=== PATIENT | female | born 2000 | race Caucasian/White ===

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

== ENCOUNTER 2018-02-13 15:44 | Emergency (ER) | payer OTHER ==
--- NOTE | 2018-02-13 17:00 | ED ---
Back Pain HPI - General Chief Complaint: Back Pain/Injury Stated Complaint: Back pain Time Seen by Provider: 02/13/18 16:42 Source: patient, RN/MD, RN notes reviewed, old records reviewed Limitations: no limitations - History of Present Illness Initial Comments: [id number] female presents emergency Department chief complaint of lower back pain. She also reports she is concern for urinary tract infection. Denies any vaginal discharge. She states she has no chance of . Patient states that she's had urinary tract infections the past she's had pain somewhat to this. However she does state the pain is worse with movement. No falls or trauma. States the pain started when she woke up this morning. Patient denies any recent fever chills nausea or vomiting. She denies any abdominal pain. - Related Data Home Medications Medication Instructions Recorded Confirmed Aspirin 325 mg PO DAILY PRN 02/13/18 02/13/18 Cranberry Fruit Concentrate [Azo 250 mg PO DAILY 02/13/18 02/13/18 Cranberry] Ibuprofen [Motrin] 600 mg PO Q6HR PRN 02/13/18 02/13/18 guaiFENesin SYRUP 100MG/5ML 200 mg PO Q6H PRN 02/13/18 02/13/18 [Robitussin] Previous Rx's Medication Instructions Recorded Cyclobenzaprine [Flexeril] 10 mg PO TID #12 tab 02/13/18 Ibuprofen 600 mg PO TID #30 tablet 02/13/18 Allergies Allergy/AdvReac Type Severity Reaction Status Date / Time Penicillins Allergy Rash/Hives Verified 02/13/18 16:54 Review of Systems ROS Statement: Those systems with pertinent positive or pertinent negative responses have been documented in the HPI. ROS Other: All systems not noted in ROS Statement are negative. Past Medical History Past Medical History: No Reported History Additional Past Medical History / Comment(s): urinary reflux/UTI History of Any Multi-Drug Resistant Organisms: None Reported Past Surgical History: Section Past Anesthesia/Blood Transfusion Reactions: No Reported Reaction Past Psychological History: Anxiety, Bipolar, Depression, PTSD Smoking Status: Former smoker Past Alcohol Use History: None Reported Past Drug Use History: None Reported - Past Family History Mother Family Medical History: No Reported History Father Family Medical History: No Reported History General Exam - General Exam Comments Initial Comments: This is a 17-year-old female. Alert and oriented. No acute distress. Limitations: no limitations Head exam: Present: atraumatic, normocephalic, normal inspection Eye exam: Present: normal appearance, PERRL, EOMI. Absent: scleral icterus, conjunctival injection, periorbital swelling ENT exam: Present: normal exam, mucous membranes moist Neck exam: Present: normal inspection. Absent: tenderness, meningismus, lymphadenopathy Respiratory exam: Present: normal lung sounds bilaterally. Absent: respiratory distress, wheezes, rales, rhonchi, stridor Cardiovascular Exam: Present: regular rate, normal rhythm, normal heart sounds. Absent: systolic murmur, diastolic murmur, rubs, gallop, clicks GI/Abdominal exam: Present: soft, normal bowel sounds. Absent: distended, tenderness, guarding, rebound, rigid Back exam: Present: normal inspection, tenderness (over lumbar spine), paraspinal tenderness (Evidence of paraspinal muscle tenderness over the lumbar spine) Neurological exam: Present: alert, oriented X3, CN II-XII intact Psychiatric exam: Present: normal affect, normal mood Skin exam: Present: warm, dry, intact, normal color. Absent: rash Course Vital Signs 02/13/18 16:19 Temperature 99.0 F Pulse Rate 100 Respiratory 18 Rate Blood Pressure 110/61 O2 Sat by Pulse 98 Oximetry Medical Decision Making - Medical Decision Making 48-year-old female with acute lower back pain today. Concern for urinary tract infection. At this time urinalysis negative for infection. HCG is negative. X -ray lumbar spine completed. No radicular symptoms. Full range of motion and strength and legs. Denies any saddle anesthesias. - Lab Data Lab Results 02/13/18 02/13/18 Range/Units 17:02 17:02 Urine Color Yellow Urine Appearance Clear (Clear) Urine pH 5.5 (5.0-8.0) Ur Specific [place] 1.025 (1.001-1.035) Urine Protein Negative (Negative) Urine Glucose (UA) Negative (Negative) Urine Ketones Trace H (Negative) Urine Blood Negative (Negative) Urine Nitrite Negative (Negative) Urine Bilirubin Negative (Negative) Urine Urobilinogen 3.0 (<2.0) mg/dL Ur Leukocyte Esterase Trace H (Negative) Urine RBC <1 (0-5) /hpf Urine WBC 1 (0-5) /hpf Ur Squamous Epith Cells 2 (0-4) /hpf Urine Mucus Few H (None) /hpf Urine HCG, Qual Not Detected (Not Detectd) - Radiology Data Radiology results: report reviewed Disposition Clinical Impression: Lower back pain Disposition: HOME SELF-CARE Condition: Good Instructions: Acute Low Back Pain (ED) Additional Instructions: Patient advised to follow-up with primary care physician. Return to emergency department if any alarming signs or symptoms occur. Prescriptions: Cyclobenzaprine [Flexeril] 10 mg PO TID #12 tab Ibuprofen 600 mg PO TID #30 tablet Is patient prescribed a controlled substance at d/c from ED?: No When asked, does pt state using other controlled substances?: No If prescribed controlled substance>3 days was MAPS reviewed?: No If opioid is for acute pain is fill amount 7 days or less?: No If Rx opioid, was Start Talking consent form obtained?: No Referrals: Jimena Obrien MD [Primary Care Provider] - 1-2 days Time of Disposition: 18:36
[2018-02-13 17:28] LABS: Appearance,Urine Clear (Clear); Bilirubin,Urine Negative (Negative); Blood,Urine Negative (Negative); Color,Urine Yellow; Glucose,Urine (UA) Negative (Negative); Ketones,Urine Trace (Negative); Leukocyte Esterase,Urine Trace (Negative); Mucus,Urine Few /hpf; Nitrite,Urine Negative (Negative); PH, Urine 5.5 (5.0-8.0); Protein,Urine Negative (Negative); RBC,Urine <1 /hpf (0-5); Specific Gravity,Urine 1.025 (1.001-1.035); Squamous Epithelial Cell,Urine 2 /hpf (0-4); WBC,Urine 1 /hpf (0-5)
--- NOTE | 2018-02-13 18:31 | XR ---
EXAMINATION TYPE: XR lumbar spine 2 or 3V DATE OF EXAM: 02/13/2018 COMPARISON: NONE HISTORY: Back pain TECHNIQUE: 3 views FINDINGS: Lumbar vertebra have normal spacing and alignment. Posterior elements are intact. Sacroilia c joints appear normal. IMPRESSION: Normal lumbar spine.
[2018-02-13 18:59] VITALS: BP 128/69; PULSE 70; RESP 16; TEMP 98.5
== END 2018-02-13 18:59 | disposition home or self-care (01) ==
LOC: EC 15:44
DX: M54.5 Low back pain (principal); Z87.891 Personal history of nicotine dependence; Z79.899 Other long term (current) drug therapy; Z88.0 Allergy status to penicillin
CPT/HCPCS: 72100; 81001; 81025; 99284

== ENCOUNTER 2019-01-21 10:06 | Emergency (ER) | payer OTHER ==
[2019-01-21] MEDS ORDERED: SODIUM CHLORIDE 0.9% 500 ML 500 ML IV ONE (10:26)
[2019-01-21] MEDS ORDERED: METOCLOPRAMIDE 5 MG/ML 2 ML VIAL IVP STA (10:26)
[2019-01-21] MEDS ORDERED: SODIUM CHLORIDE 0.9% 1,000 ML IV ONE (10:26)
[2019-01-21 11:09] LABS: Basophils % (A) 0 %; Eosinophils # (A) 0.2 k/uL (0-0.7); Eosinophils % (A) 3 %; HCT 35.3 % (34.0-46.0); HGB 12.2 gm/dL (11.4-16.0); Lymphocytes # (A) 1.4 k/uL (1.0-4.8); Lymphocytes % (A) 21 %; MCH 30.5 pg (25.0-35.0); MCHC 34.5 g/dL (31.0-37.0); MCV 88.2 fL (80.0-100.0); Monocytes # (A) 0.4 k/uL (0-1.0); Monocytes % (A) 6 %; Neutrophils # (A) 4.6 k/uL (1.3-7.7); Neutrophils % (A) 69 %; Platelet Count 210 k/uL (150-450); RDW 13.1 % (11.5-15.5); WBC 6.6 k/uL (4.0-11.0)
--- NOTE | 2019-01-21 11:09 | ED ---
Nausea/Vomiting/Diarrhea HPI - General Chief complaint: Nausea/Vomiting/Diarrhea Stated complaint: 14wks preg, vomiting Time Seen by Provider: 01/21/19 10:10 Source: patient Mode of arrival: ambulatory Limitations: no limitations - History of Present Illness Initial comments: 18-year-old female presenting today for chief complaint of vomiting and pregnan cy. Pt states she is 14 weeks . LMP 10/18/18. Patient states that the past few weeks she has had vomiting about 4 times a day. She states that is normal for her. Patient denies any hematemesis. Patient states that for the past 12 hours she has had vomiting every 40 minutes. She states is unusual. Patient denies any diarrhea. Patient denies any dysuria urgency frequency. Patient denies any fevers. Patient denies any melena or hematochezia. Patient states she has an upcoming appointment with OBGN on January 26. Patient states she has had a previous US with confirmed intrauterine . Patient denies pelvic pain. - Related Data Previous Rx's Medication Instructions Recorded Ondansetron Odt [Zofran Odt] 4 mg PO Q12HR PRN 2 Days #4 tab 01/21/19 Allergies Allergy/AdvReac Type Severity Reaction Status Date / Time Penicillins Allergy Rash/Hives Verified 01/21/19 10:16 Review of Systems ROS Statement: Those systems with pertinent positive or pertinent negative responses have been documented in the HPI. ROS Other: All systems not noted in ROS Statement are negative. Past Medical History Past Medical History: No Reported History Additional Past Medical History / Comment(s): urinary reflux/UTI History of Any Multi-Drug Resistant Organisms: None Reported Past Surgical History: Section Past Anesthesia/Blood Transfusion Reactions: No Reported Reaction Past Psychological History: Anxiety, Bipolar, Depression, PTSD Smoking Status: Former smoker Past Alcohol Use History: None Reported Past Drug Use History: None Reported - Past Family History Mother Family Medical History: No Reported History Father Family Medical History: No Reported History General Exam - General Exam Comments Initial Comments: General: The patient is awake and alert, in no distress, and does not appear acutely ill. Eye: Pupils are equal, round and reactive to light, extra-ocular movements are intact. No nystagmus. There is normal conjunctiva bilaterally. No signs of icterus. Ears, nose, mouth and throat: There are moist mucous membranes and no oral lesions. Neck: The neck is supple, there is no tenderness or JVD. Cardiovascular: There is a regular rate and rhythm. No murmur, rub or gallop is appreciated. Respiratory: Lungs are clear to auscultation, respirations are non-labored, breath sounds are equal. No wheezes, stridor, rales, or rhonchi. Gastrointestinal: Soft, non-distended, non-tender abdomen without masses or organomegaly noted. There is no rebound or guarding present. No CVA tenderness. Bowel sounds are unremarkable. Musculoskeletal: Normal ROM, no tenderness. Strength 5/5. Sensation intact. Pulses equal bilaterally 2+. Neurological: A&O x 3. CN II-XII intact, There are no obvious motor or sensory deficits. Coordination appears grossly intact. Speech is normal. Skin: Skin is warm and dry and no rashes or lesions are noted. Psychiatric: Cooperative, appropriate mood & affect, normal judgment. Limitations: no limitations Course Vital Signs 01/21/19 01/21/19 01/21/19 10:13 11:23 13:06 Temperature 98.7 F 98.8 F 98.2 F Pulse Rate 98 81 62 Respiratory 18 19 18 Rate Blood Pressure 114/79 111/55 136/65 O2 Sat by Pulse 97 99 96 Oximetry Medical Decision Making - Medical Decision Making 18-year-old female presented for vomiting and . Increase from baseline. Urinalysis was not a clean catch. Patient denies any urinary symptoms. Will culture. Patient is provided Reglan and IV fluids. Patient still continued to have dry heaving. Zofran was administered. Patient states t his helped alleviate symptoms. She states she is hungry and would like to go home. Patient does not have any significant electrolyte derangements. No signs of significant dehydration. I discussed the case with him provider all be reviewed laboratory studies. Patient will be discharged with instruction to follow up with her [facility] as scheduled on January 26. Patient is to return for abdominal pain pelvic cramping or vaginal bleeding. Patient verbalized understanding of return parameters. - Lab Data Result diagrams: 01/21/19 11:00 01/21/19 11:00 Lab Results 01/21/19 01/21/19 01/21/19 Range/Units 11:00 11:00 11:00 WBC 6.6 (4.0-11.0) k/uL RBC 4.00 (3.80-5.40) m/uL Hgb 12.2 (11.4-16.0) gm/dL Hct 35.3 (34.0-46.0) % MCV 88.2 (80.0-100.0) fL MCH 30.5 (25.0-35.0) pg MCHC 34.5 (31.0-37.0) g/dL RDW 13.1 (11.5-15.5) % Plt Count 210 (150-450) k/uL Neutrophils % 69 % Lymphocytes % 21 % Monocytes % 6 % Eosinophils % 3 % Basophils % 0 % Neutrophils # 4.6 (1.3-7.7) k/uL Lymphocytes # 1.4 (1.0-4.8) k/uL Monocytes # 0.4 (0-1.0) k/uL Eosinophils # 0.2 (0-0.7) k/uL Basophils # 0.0 (0-0.2) k/uL Sodium 139 (137-145) mmol/L Potassium 4.2 (3.5-5.1) mmol/L Chloride 107 (98-107) mmol/L Carbon Dioxide 21 L (22-30) mmol/L Anion Gap 11 mmol/L BUN 8 (7-17) mg/dL Creatinine 0.53 (0.52-1.04) mg/dL Est GFR (CKD-EPI)AfAm >90 (>60 ml/min/1.73 sqM) Est GFR (CKD-EPI)NonAf >90 (>60 ml/min/1.73 sqM) Glucose 100 H (74-99) mg/dL Calcium 9.3 (8.4-10.2) mg/dL Total Bilirubin 0.6 (0.2-1.3) mg/dL AST 23 (14-36) U/L ALT 30 (9-52) U/L Alkaline Phosphatase 51 (38-126) U/L Total Protein 6.7 (6.3-8.2) g/dL Albumin 4.1 (3.5-5.0) g/dL Urine Color Yellow Urine Appearance Turbid H (Clear) Urine pH 7.5 (5.0-8.0) Ur Specific [place] 1.025 (1.001-1.035) Urine Protein 1+ H (Negative) Urine Glucose (UA) Negative (Negative) Urine Ketones Trace H (Negative) Urine Blood Negative (Negative) Urine Nitrite Negative (Negative) Urine Bilirubin Negative (Negative) Urine Urobilinogen 3.0 (<2.0) mg/dL Ur Leukocyte Esterase Trace H (Negative) Urine RBC 3 (0-5) /hpf Urine WBC 8 H (0-5) /hpf Ur Squamous Epith Cells 55 H (0-4) /hpf Amorphous Sediment Many H (None) /hpf Urine Bacteria Moderate H (None) /hpf Urine Mucus Few H (None) /hpf Disposition Clinical Impression: Vomiting during Disposition: HOME SELF-CARE Condition: Good Instructions (If sedation given, give patient instructions): Nausea and Vomiting in (ED) Additional Instructions: Please use medication as discussed. Please follow-up with [facility] in the next week, attend scheduled appointment on January 26. Please return to emergency room if the symptoms increase or worsen or for any other concerns. Prescriptions: Ondansetron Odt [Zofran Odt] 4 mg PO Q12HR PRN 2 Days #4 tab PRN Reason: Vomiting Is patient prescribed a controlled substance at d/c from ED?: No Referrals: Jimena Obrien MD [Primary Care Provider] - 1-2 days Nancy Retana MD [STAFF PHYSICIAN] - 1-2 days Time of Disposition: 12:47
[2019-01-21 11:23] LABS: ALT 30 U/L (9-52); AST 23 U/L (14-36); African American GFR (CKD) >90 (>60 ml/min/1.73 sqM); Albumin 4.1 g/dL (3.5-5.0); Alkaline Phosphatase 51 U/L (38-126); Anion Gap 11 mmol/L; Blood Urea Nitrogen 8 mg/dL (7-17); Calcium 9.3 mg/dL (8.4-10.2); Carbon Dioxide 21 mmol/L (22-30); Chloride 107 mmol/L (98-107); Glucose 100 mg/dL (74-99); Potassium 4.2 mmol/L (3.5-5.1); Sodium 139 mmol/L (137-145); Total Bilirubin 0.6 mg/dL (0.2-1.3); Total Protein 6.7 g/dL (6.3-8.2)
[2019-01-21 11:30] LABS: Amorphous Sediment,Urine Many /hpf; Appearance,Urine Turbid (Clear); Bacteria,Urine Moderate /hpf; Bilirubin,Urine Negative (Negative); Blood,Urine Negative (Negative); Color,Urine Yellow; Glucose,Urine (UA) Negative (Negative); Ketones,Urine Trace (Negative); Leukocyte Esterase,Urine Trace (Negative); Mucus,Urine Few /hpf; Nitrite,Urine Negative (Negative); PH, Urine 7.5 (5.0-8.0); Protein,Urine 1+ (Negative); RBC,Urine 3 /hpf (0-5); Specific Gravity,Urine 1.025 (1.001-1.035); Squamous Epithelial Cell,Urine 55 /hpf (0-4); WBC,Urine 8 /hpf (0-5)
[2019-01-21] MEDS ORDERED: ONDANSETRON 4 MG/2 ML VIAL IVP STA (11:59)
[2019-01-21 13:10] VITALS: BP 136/65; PULSE 62; RESP 18; TEMP 98.2
== END 2019-01-21 13:06 | disposition home or self-care (01) ==
LOC: EC 10:06
DX: O21.9 Vomiting of pregnancy, unspecified (principal); Z87.891 Personal history of nicotine dependence; Z88.0 Allergy status to penicillin; Z3A.14 14 weeks gestation of pregnancy
CPT/HCPCS: 36415; 80053; 85025; 81001; 99284; 96374; 96375; 96361; J2765; J2405

== ENCOUNTER 2019-06-29 10:09 | Outpatient (CLI) | payer OTHER ==
[2019-06-29 10:46] VITALS: BP 135/66; PULSE 100; RESP 18; TEMP 96.7
[2019-06-29] MEDS: DEXTROSE 5%-LACTATED RINGERS 1,000 ML IV SCH ×3 (11:05→11:59)
[2019-06-29 11:35] LABS: Appearance,Urine Turbid (Clear); Bacteria,Urine Occasional /hpf; Bilirubin,Urine 1+ (Negative); Blood,Urine Negative (Negative); Color,Urine Dark Yellow; Glucose,Urine (UA) Negative (Negative); Ketones,Urine 4+ (Negative); Leukocyte Esterase,Urine Small (Negative); Mucus,Urine Many /hpf; Nitrite,Urine Negative (Negative); Protein,Urine 1+ (Negative); RBC,Urine 7 /hpf (0-5); Specific Gravity,Urine 1.022 (1.001-1.035); Squamous Epithelial Cell,Urine 63 /hpf (0-4); WBC,Urine 5 /hpf (0-5)
[2019-06-29] MEDS ORDERED: ONDANSETRON 4 MG/2 ML VIAL IVP STA (11:57)
[2019-06-29] MEDS ORDERED: DEXTROSE 5%-LACTATED RINGERS 1,000 ML IV SCH (12:00)
--- NOTE | 2019-07-30 07:51 | P.MSEPDOC ---
Presenting Problems - Arrival Data Date of Arrival on Unit: 06/29/19 Time of Arrival on Unit: 10:05 Mode of Transport: Wheelchair - Complaint OB-Reason for Admission/Chief Complaint: Acute Nausea/Vomiting, Other Medical History - Information : 2 Para: 1 Term: 1 : 0 Abortions: Spontaneous or Elective: 0 Number of Living Children: 1 - Gestational Age Gestational Age by PRICE (wks/days): 36 Weeks and 2 Days - History Complications: Prior Review of Systems - Review of Systems Constitutional: No problems Breast: No problems ENT: No problems Cardiovascular: No problems Respiratory: No problems Gastrointestinal: Diarrhea Genitourinary: No problems Musculoskeletal: No problems Neurological: No problems Skin: No problems Vital Signs - Temperature Temperature: 96.7 F Temperature Source: Temporal Artery Scan - Pulse Right Sitting Brachial Pulse Rate: 100 Pulse Assessment Method: Automatic Cuff - Respirations Respiratory Rate: 18 O2 Sat by Pulse Oximetry: 100 - Blood Pressure Right Arm Blood Pressure: 135/66 Blood Pressure Mean: 89 Blood Pressure Source: Automatic Cuff Medical Screen Scoring (Pre) - Cervical Exam Dilation: Exam Deferred Effacement: Exam Deferred Membranes: Intact - Uterine Contractions Frequency: N/A Duration: N/A Intensity: N/A - Maternal Vital Signs Maternal Temperature: N/A Maternal Blood Pressure: N/A Signs of Preeclampsia: N/A Maternal Respirations: N/A - Maternal Trauma Maternal Trauma: N/A - Assessment - Baby A Baseline FHR: 140 Heart Rate - NICHD Category: Category I (Normal) = 0 NST: Reactive Position: N/A Station: N/A - Total Score - Baby A Total Score - Baby A: 0 - Total Score - Baby B Total Score - Baby B: 0 - Total Score - Baby C Total Score - Baby C: 0 - Level of Risk - Baby A Level of Risk - Baby A: Low (0-5) - Level of Risk - Baby B Level of Risk - Baby B: Low (0-5) - Level of Risk - Baby C Level of Risk - Baby C: Low (0-5) Physician Notification (Pre) - Physician Notified Physician Notified Date: 06/29/19 Physician Notified Time: 10:25 New Order Received: Yes (IV and urine) Disposition - Disposition OB Disposition: Physician follow up in office, Discharge to home, Written follow up instructions reviewed Discharge Date: 06/29/19 Discharge Time: 12:50 I agree with the RN Medical Screening Exam: Yes Risk & Benefit of care provided described in d/c instruction: Yes Diagnosis: RELATED CONDITIONS, UNSPECIFIED, THIRD TRIMESTER
== END 2019-06-29 12:50 | disposition home or self-care (01) ==
LOC: FBPOP 10:09
PROVIDERS: ATTEND Obstetrics & Gynecology
DX: O26.93 Pregnancy related conditions, unspecified, third trimester (principal); Z3A.36 36 weeks gestation of pregnancy
CPT/HCPCS: 59025; 96360; 96361; 96375; 81001; 87086; G0463; J2405; 99214

== ENCOUNTER 2019-07-23 07:49 | Inpatient (IN) | payer OTHER ==
[2019-07-23] MEDS ORDERED: CITRIC ACID-SODIUM CITRATE 15 ML CUP PO ONE (08:05)
[2019-07-23] MEDS ORDERED: LACTATED RINGERS 1,000 ML IV ONE (08:05)
[2019-07-23] MEDS ORDERED: CLINDAMYCIN 900 MG in DEXTROSE 5% IN WATER 50 ML IVPB STA ×2 (08:06)
[2019-07-23 09:06] LABS: Basophils % (A) 0 %; Eosinophils # (A) 0.2 k/uL (0-0.7); Eosinophils % (A) 2 %; HCT 29.1 % (34.0-46.0); HGB 10.1 gm/dL (11.4-16.0); Lymphocytes % (A) 28 %; MCH 31.9 pg (25.0-35.0); MCHC 34.8 g/dL (31.0-37.0); MCV 91.7 fL (80.0-100.0); Mean Platelet Volume 8.2; Monocytes # (A) 0.7 k/uL (0-1.0); Monocytes % (A) 6 %; Neutrophils # (A) 6.7 k/uL (1.3-7.7); Neutrophils % (A) 62 %; Platelet Count 366 k/uL (150-450); Poikilocytosis Slight; RBC 3.17 m/uL (3.80-5.40); WBC 10.8 k/uL (4.0-11.0)
--- NOTE | 2019-07-23 09:34 | P.HPOB ---
History of Present Illness H&P Date: 07/23/19 Chief Complaint: Declining This is a 18-year-old white female 2 para 1001 EDC 07/25/2019 at 39-5/7 weeks' gestation. Patient had a previous section, is declining option for , and requesting repeat low transverse section. She denies fluid leakage, vaginal bleeding, or any other issues. Fetus is been active throughout the . Past surgical history is significant for section 2017, with postoperative wound infection. Past medical history significant for vesicoureteral reflux. Current medications Zofran 4 mg daily as needed, vitamin daily. ALLERGIES include penicillin to which she reports an unknown reaction. Social history patient is single, she has been a smoker one half pack per day, she works as a plan examiner locally. Father of the baby is present and involved. Family history is essentially unremarkable, diabetes noted in grandparents. history is significant for blood type A+, rubella status nonimmune. Urine culture, hepatitis B surface antigen, HIV testing, group B strep cultures, gonorrhea and chlamydia cultures all negative. Urine drug screen positive for cannabinoids. One-hour Glucola 102. On exam this is a pleasant young female who is 5 foot 10 inches, 230 pounds, blo od pressure 125/76. The general physical exam is within normal limits. Abdomen is obviously gravid, fetus is vertex to Gio's maneuvers. Heart rate is consistent with reactive NST. No peripheral edema noted. Chest is clear in all felix. Impression: 39-5/7 weeks intrauterine , previous section declining option for . For repeat low transverse section at this time. Plan: Anesthesia in nursing staff aware. We'll proceed with primary low transverse section. Clindamycin antibiotic chosen for prophylaxis. All risks and benefits of surgery reviewed in detail. All questions answered. Review of Systems Constitutional: Reports as per HPI Past Medical History Past Medical History: No Reported History Additional Past Medical History / Comment(s): urinary reflux/UTI History of Any Multi-Drug Resistant Organisms: None Reported Past Surgical History: Section Past Anesthesia/Blood Transfusion Reactions: No Reported Reaction Past Psychological History: Anxiety, Bipolar, Depression, PTSD Additional Psychological History / Comment(s): no longer sees doctor for these issues, no meds Smoking Status: Never smoker Past Alcohol Use History: None Reported Past Drug Use History: Marijuana Additional Drug Use History / Comment(s): positive uds in OB office, pt denies further use during - Past Family History Mother Family Medical History: No Reported History Father Family Medical History: No Reported History Medications and Allergies Home Medications Medication Instructions Recorded Confirmed Type Acetaminophen Tab [Tylenol Tab] 650 mg PO DIRECTED 07/22/19 07/23/19 History Pnv,Calcium 72/Iron/Folic Acid 1 each PO DAILY 07/22/19 07/23/19 History [ Plus Tablet] Allergies Allergy/AdvReac Type Severity Reaction Status Date / Time Penicillins Allergy Rash/Hives Verified 07/23/19 08:03 Exam Vital Signs Temp Pulse Resp BP Pulse Ox 07/23/19 08:03 96.7 F L 96 16 125/76 98 Intake and Output 07/22/19 07/23/19 07/23/19 22:59 06:59 14:59 Other: Weight 104.326 kg See dictation under HPI please Results Result Diagrams: 07/23/19 08:45 Abnormal Lab Results - Last 24 Hours (Table) 07/23/19 Range/Units 08:45 RBC 3.17 L (3.80-5.40) m/uL Hgb 10.1 L (11.4-16.0) gm/dL Hct 29.1 L (34.0-46.0) % Assessment and Plan Assessment: 39-5/7 weeks intrauterine , here for repeat low transverse section. All signs reassuring. Group B strep cultures negative. Plan: Clindamycin prophylaxis. For repeat low transverse section. Time with Patient: Less than 30
[2019-07-23] MEDS ORDERED: MORPHINE SULFATE (PF) 0.3 MG/0.3 ML SYR ONE (09:39)
[2019-07-23] MEDS ORDERED: KETOROLAC 30 MG/ML 1 ML VIAL ONE (09:39)
[2019-07-23] MEDS ORDERED: OXYTOCIN 10 UNIT/ML 1 ML VIAL ONE (09:39)
[2019-07-23] MEDS ORDERED: fentaNYL (PF) 50 MCG/ML 2 ML AMP ONE (09:39)
[2019-07-23] MEDS ORDERED: PHENYLEPHRINE-0.9% NACL SYG 1 MG/10 ML SYRINGE ONE (09:39)
[2019-07-23] MEDS ORDERED: NALBUPHINE 10 MG/ML (1 ML AMP) ONE (09:39)
[2019-07-23] MEDS ORDERED: ONDANSETRON 4 MG/2 ML VIAL ONE (09:39)
[2019-07-23] MEDS ORDERED: diphenhydrAMINE 50 MG/ML 1 ML VIAL IVP PRN ×2 (10:30)
[2019-07-23] MEDS ORDERED: ONDANSETRON 4 MG/2 ML VIAL IVP PRN (10:30)
[2019-07-23] MEDS ORDERED: ZOLPIDEM 5 MG TAB PO PRN (10:30)
[2019-07-23] MEDS ORDERED: diphenhydrAMINE 25 MG CAP PO PRN (10:30)
[2019-07-23] MEDS ORDERED: KETOROLAC 30 MG/ML 1 ML VIAL IVP PRN (10:30)
[2019-07-23] MEDS ORDERED: METOCLOPRAMIDE 5 MG/ML 2 ML VIAL IVP PRN (10:30)
[2019-07-23] MEDS ORDERED: diphenhydrAMINE 50 MG CAP PO PRN (10:30)
[2019-07-23] MEDS ORDERED: NALOXONE 0.4 MG/ML 1 ML VIAL IV PRN (10:30)
[2019-07-23] MEDS ORDERED: ACETAMINOPHEN TAB 325 MG TAB PO PRN (10:30)
--- NOTE | 2019-07-23 10:30 | P.OP ---
Date of Procedure: 07/23/19 Preoperative Diagnosis: 39-5/7 weeks, previous declining . Postoperative Diagnosis: Normal-appearing tubes and ovaries, liveborn female infant Procedure(s) Performed: Repeat low transverse section Anesthesia: spinal Surgeon: Nancy Retana Cro #1: Jovany Preciado Estimated Blood Loss (ml): 600 IV fluids (ml): 1,500 Urine output (ml): 100 Pathology: none sent Condition: stable Disposition: PACU Description of Procedure: Patient is brought to the [facility] and suite where a spinal with Duramorph is administered without difficulty. She's placed in the dorsal supine position with left lateral uterine displacement. The abdomen is prepped and draped in usual sterile fashion. Clindamycin is given prophylactically. The appropriate timeout is performed to assure that Her patient and procedure. The analgesia is checked and noted to be adequate. Porter catheter is placed to direct drainage, Bicitra given. A low transverse skin incision is made through the prior scar tissue. This is taken down to the fascia which is isolated, scored, and extended bilaterally with curved Charles scissors. Peritoneum is next identified and incised, there is no bowel or bladder involvement. The bladder flap is taken down from previous surgery. Bladder blade is removed. A low transverse uterine incision is made, artificial amniorrhexis reveals abundant clear fluid. The 's head is d elivered in the occiput anterior position, a nuchal cord is reduced. The oropharynx, nasopharynx, and external nares were all bulb suctioned on the abdominal wall. Patient is officially delivered of a liveborn female at 0958 hours. Umbilical cord is doubly clamped and ligated, she is handed to waiting nurses for evaluation where scores of 9 and 9 at one and 5 minutes respectively are given. The placentas delivered manually, it is inspected and noted to be intact with trivascular cord at 0959 hours. Uterus is then thoroughly swept clean with a sterile sponge to avoid any retained products of conception. The edges of the uterine incision are grasped with Phillips clamps and the uterus is closed in a two-step fashion. First layer is 0 Vicryl in a running locking manner. Second layer 0 Vicryl in an imbricated fashion. Bilateral tubes and ovaries are normal to inspection. The abdomen is suctioned behind the uterus with guard, the uterus is then gently placed back into the abdominal cavity. Bilateral gutters are inspected and cleaned. Hemostasis is excellent. Peritoneum is allowed to close by secondary intention. Fascia is closed in a running stitch of 0 Vicryl with over ligation in the midline. Subcutaneous tissue is irrigated, noted to be clean and dry. It is reapproximated with 3-0 Vicryl in a running fashion. 4-0 undyed Vicryl issues for final skin closure in a subcuticular manner. Steri-Strips and Mastisol are applied to the wound. Uterus is then massaged for a small amount of blood. Porter is noted to be draining clear urine. Patient is brought back to the recovery room in stable condition with stable vital signs. Complications:none
[2019-07-23] MEDS: LACTATED RINGERS 1,000 ML IV SCH ×2 (14:04→21:08)
[2019-07-23] MEDS: SENNOSIDES-DOCUSATE SODIUM 1 EACH TAB PO SCH (21:13)
[2019-07-24] MEDS: IBUPROFEN 600 MG TAB PO PRN ×3 (06:07→20:50)
[2019-07-24 07:05] LABS: Basophils % (A) 0 %; Eosinophils # (A) 0.1 k/uL (0-0.7); Eosinophils % (A) 1 %; HCT 28.4 % (34.0-46.0); HGB 9.3 gm/dL (11.4-16.0); Lymphocytes # (A) 1.9 k/uL (1.0-4.8); Lymphocytes % (A) 19 %; MCH 30.6 pg (25.0-35.0); MCHC 32.9 g/dL (31.0-37.0); MCV 93.1 fL (80.0-100.0); Mean Platelet Volume 8.5; Monocytes # (A) 0.8 k/uL (0-1.0); Monocytes % (A) 8 %; Neutrophils # (A) 6.9 k/uL (1.3-7.7); Neutrophils % (A) 70 %; Platelet Count 290 k/uL (150-450); Poikilocytosis Slight; RBC 3.05 m/uL (3.80-5.40); WBC 9.9 k/uL (4.0-11.0)
--- NOTE | 2019-07-24 09:38 | P.PN ---
Subjective Progress Note Date: 07/24/19 Principal diagnosis: Postoperative day #1 Positive flatus, urinating well. Ambulating. Pain well tolerated. Objective - Vital Signs Vital signs: Vital Signs Temp 98.1 F 07/24/19 08:00 Pulse 66 07/24/19 08:00 Resp 16 07/24/19 08:00 BP 120/76 07/24/19 08:00 Pulse Ox 100 07/24/19 08:00 Intake & Output 07/23/19 07/24/19 07/24/19 18:59 06:59 18:59 Intake Total 2000 Output Total 550 1200 Balance 1450 -1200 Weight 104.326 kg Intake: Intake, IV Titration 2000 Amount Lactated Ringers 1,000 ml 2000 @ 125 mls/hr IV .Q8H CONRADO Rx#:[id number] Output: Urine 550 1000 Straight 550 Post Void Residual 200 Other: Voiding Method Toilet # Voids 150 1 - Constitutional General appearance: Present: average body habitus, cooperative - EENT Eyes: Present: PERRLA ENT: Present: hearing grossly normal - Neck Neck: Present: normal ROM Thyroid: bilateral: normal size - Respiratory Respiratory: bilateral: CTA - Cardiovascular Rhythm: regular - Gastrointestinal General gastrointestinal: Present: normal bowel sounds - Genitourinary Genitourinary Comment(s): Fundus firm, midline, symmetric, 18 week size. Incision clean and dry, intact, Steri-Strips applied. - Neurologic Neurologic: Present: CNII-XII intact - Musculoskeletal Musculoskeletal: Present: gait normal, strength equal bilaterally - Psychiatric Psychiatric: Present: A&O x's 3, appropriate affect, intact judgment & insight - Labs CBC & Chem 7: 07/24/19 06:45 Labs: Abnormal Lab Results - Last 24 Hours (Table) 07/24/19 Range/Units 06:45 RBC 3.05 L (3.80-5.40) m/uL Hgb 9.3 L (11.4-16.0) gm/dL Hct 28.4 L (34.0-46.0) % Assessment and Plan Assessment: Doing well postoperative day #1. Plan: Continue postoperative care. Advanced diet and activity. Likely discharge home tomorrow. Time with Patient: Less than 30
--- NOTE | 2019-07-24 16:05 | P.PN ---
Progress Note - Text Date: 07/24/2019 Time: 13:47 The patient is status post section Vital signs stable VAS: 0-10 Patient has no complaints of pain. The patient incurred some minimal itching yesterday, this itching is now subsiding. Pain meds to be managed by service.
[2019-07-24] MEDS: HYDROcodone/APAP 5-325MG 1 EACH TAB PO PRN ×2 (16:15→23:06)
[2019-07-24] MEDS: SENNOSIDES-DOCUSATE SODIUM 1 EACH TAB PO SCH ×2 (16:16→19:49)
[2019-07-24] MEDS: LACTATED RINGERS 1,000 ML IV SCH (19:48)
[2019-07-25] MEDS: IBUPROFEN 600 MG TAB PO PRN ×2 (03:04→09:04)
[2019-07-25] MEDS: HYDROcodone/APAP 5-325MG 1 EACH TAB PO PRN (05:19)
[2019-07-25 08:12] VITALS: BP 131/80; PULSE 70; RESP 16; TEMP 98.2
[2019-07-25] MEDS: SENNOSIDES-DOCUSATE SODIUM 1 EACH TAB PO SCH (09:04)
--- NOTE | 2019-07-25 10:31 | P.DS ---
Providers Date of admission: 07/23/19 07:49 Expected date of discharge: 07/25/19 Attending physician: Nancy Retana Primary care physician: Stated None Hospital Course: This is a 18-year-old white female 2 para 1001 EDC 07/25/2019 at 39-5/7 weeks' gestation. Patient had a previous section and was declining option for . Decision was therefore made to proceed with repeat low transverse section. Please see admitting H&P for details. Patient underwent a repeat low transverse section under my care on 07/23/2019. She gave to a liveborn female with scores of 9 and 9 at one and 5 minutes respectively. Infant weighed 4360 g or 9 lbs. 10 oz. She did well intraoperatively, with an estimated blood loss of 600 mL's. Please see dictated operative note for details. [place] is doing well. Patient is a symptomatically at this time, passing flatus, ambulating, passing urine, with good pain control. Breast-feeding is going well. She is judged to be in very good condition for discharge home. Incision is clean and dry, intact, Steri-Strips applied. Extremities reveal no edema. Fundus is firm and in the midline, symmetric and 18 week size. Patient is being discharged home in very good condition. She will follow-up with me in the office in 2 weeks for incision check. I have reminded her no intercourse, tampons or douching. I have given her prescription for a double electric breast pump to be used as needed. She will call with any fevers shakes or chills, foul smelling or copious lochia, with the passage of large blood clots, with any pain not alleviated by [id number] products, or indeed with any concerns. We have briefly discussed options for contraception and we will discuss this further in the office. Patient Condition at Discharge: Good Plan - Discharge Summary Discharge Rx Participant: No New Discharge Prescriptions: No Action Acetaminophen Tab [Tylenol Tab] 650 mg PO DIRECTED Pnv,Calcium 72/Iron/Folic Acid [ Plus Tablet] 1 each PO DAILY Discharge Medication List Acetaminophen Tab [Tylenol Tab] 650 mg PO DIRECTED 07/22/19 [History] Pnv,Calcium 72/Iron/Folic Acid [ Plus Tablet] 1 each PO DAILY 07/22/19 [History] Follow up Appointment(s)/Referral(s): Nancy Retana MD [STAFF PHYSICIAN] - 2 Weeks Discharge Disposition: HOME SELF-CARE
== END 2019-07-25 12:00 | disposition home or self-care (01) | DRG 788 ==
LOC: 4FBP 07:49
PROVIDERS: ADMIT Obstetrics & Gynecology; ATTEND Obstetrics & Gynecology
PROC: 10D00Z1 Extraction of Products of Conception, Low, Open Approach (ICD-10-PCS; principal; 2019-07-23 09:54)
DX: O34.211 Maternal care for low transverse scar from previous cesarean delivery (principal); O99.334 Smoking (tobacco) complicating childbirth; F17.210 Nicotine dependence, cigarettes, uncomplicated; O99.344 Other mental disorders complicating childbirth; F43.10 Post-traumatic stress disorder, unspecified; F31.9 Bipolar disorder, unspecified; F41.9 Anxiety disorder, unspecified; O69.81X0 Labor and delivery complicated by cord around neck, without compression, not applicable or unspecified; Z37.0 Single live birth; Z3A.39 39 weeks gestation of pregnancy; Z87.440 Personal history of urinary (tract) infections; Z88.0 Allergy status to penicillin
CPT/HCPCS: 85025; 86850; 86900; 86901

== ENCOUNTER 2021-09-16 07:06 | Outpatient (CLI) | payer OTHER ==
[2021-09-16] MEDS ORDERED: ONDANSETRON 4 MG/2 ML VIAL IVP STA (07:26)
[2021-09-16] MEDS ORDERED: DEXTROSE 5%-0.9% NACL 500 ML IV ONE (07:30)
[2021-09-16 08:11] LABS: ALT 13 U/L (4-34); AST 29 U/L (14-36); African American GFR (CKD) >90 (>60 ml/min/1.73 sqM); Albumin 4.1 g/dL (3.5-5.0); Alkaline Phosphatase 82 U/L (38-126); Anion Gap 10 mmol/L; Blood Urea Nitrogen 9 mg/dL (7-17); Calcium 8.8 mg/dL (8.4-10.2); Carbon Dioxide 17 mmol/L (22-30); Chloride 107 mmol/L (98-107); Glucose 106 mg/dL (74-99); Non-African American GFR(CKD) >90 (>60 ml/min/1.73 sqM); Sodium 134 mmol/L (137-145); Total Protein 7.3 g/dL (6.3-8.2)
[2021-09-16 08:15] LABS: Basophils % (A) 0 %; Eosinophils # (A) 0.2 k/uL (0-0.7); Eosinophils % (A) 2 %; HCT 28.2 % (34.0-46.0); HGB 9.9 gm/dL (11.4-16.0); Lymphocytes # (A) 1.8 k/uL (1.0-4.8); Lymphocytes % (A) 17 %; MCH 33.3 pg (25.0-35.0); MCHC 35.1 g/dL (31.0-37.0); MCV 94.9 fL (80.0-100.0); Mean Platelet Volume 7.7; Monocytes # (A) 0.6 k/uL (0-1.0); Monocytes % (A) 6 %; Neutrophils # (A) 7.6 k/uL (1.3-7.7); Neutrophils % (A) 73 %; Platelet Count 204 k/uL (150-450); RBC 2.97 m/uL (3.80-5.40); RDW 13.1 % (11.5-15.5); WBC 10.3 k/uL (3.8-10.6)
[2021-09-16 08:17] LABS: Potassium 4.1 mmol/L (3.5-5.1)
[2021-09-16 08:40] LABS: Influenza A Not Detected (Not Detectd); Influenza B Not Detected (Not Detectd)
[2021-09-16 08:43] LABS: Amorphous Sediment,Urine Rare /hpf; Appearance,Urine Turbid (Clear); Bacteria,Urine Many /hpf; Bilirubin,Urine Negative (Negative); Blood,Urine Negative (Negative); Color,Urine Yellow; Glucose,Urine (UA) 4+ (Negative); Ketones,Urine Negative (Negative); Leukocyte Esterase,Urine Moderate (Negative); Mucus,Urine Moderate /hpf; Nitrite,Urine Negative (Negative); Protein,Urine 1+ (Negative); RBC,Urine 5 /hpf (0-5); Specific Gravity,Urine 1.021 (1.001-1.035); Squamous Epithelial Cell,Urine 12 /hpf (0-4); Urobilinogen,Urine <2.0 mg/dL (<2.0); WBC,Urine 9 /hpf (0-5)
[2021-09-16] MEDS ORDERED: DEXTROSE 5%-LACTATED RINGERS 1,000 ML IV SCH (08:45)
[2021-09-16] MEDS ORDERED: METOCLOPRAMIDE 5 MG/ML 2 ML VIAL IVP STA (09:05)
[2021-09-16] MEDS ORDERED: CLINDAMYCIN 600 MG in DEXTROSE 5% IN WATER 50 ML IVPB STA ×2 (09:07)
[2021-09-16] MEDS ORDERED: LACTATED RINGERS 1,000 ML IV SCH (09:15)
[2021-09-16 11:06] VITALS: BP 130/74; PULSE 84; RESP 18; TEMP 97.3
--- NOTE | 2021-10-19 10:32 | P.MSEPDOC ---
Presenting Problems - Arrival Data Date of Arrival on Unit: 09/16/21 Time of Arrival on Unit: 07:06 Mode of Transport: Wheelchair - Complaint OB-Reason for Admission/Chief Complaint: Other Comment: ratid heart beat,back pain and vomiting Medical History - Information : 3 Para: 2 Term: 2 : 0 Abortions: Spontaneous or Elective: 0 Number of Living Children: 2 - Gestational Age Gestational Age by PRICE (wks/days): 32 Weeks and 4 Days Review of Systems - Review of Systems Constitutional: No problems Breast: No problems ENT: No problems Cardiovascular: No problems Respiratory: No problems Gastrointestinal: No problems Genitourinary: No problems Musculoskeletal: No problems Neurological: No problems Skin: No problems Vital Signs - Temperature Temperature: 97.3 F Temperature Source: Temporal Artery Scan - Pulse Right Radial Pulse Rate: 84 Pulse Assessment Method: Automatic Cuff - Respirations Respiratory Rate: 18 Oxygen Delivery Method: Room Air - Blood Pressure Right Arm Blood Pressure: 130/74 Blood Pressure Mean: 92 Blood Pressure Source: Automatic Cuff Medical Screen Scoring - Assessment - Baby A Baseline FHR: 140 Heart Rate - NICHD Category: Category I (Normal) Physician Notification - Physician Notified Physician Notified Date: 09/16/21 Physician Notified Time: 07:15 Physician: Nancy Retana Order Received: Yes - Notification Comment Comment: iv hydrate, iv meds & testing orders Maternal Triage Index - Non-Urgent/Priority 4 Non-Urgent Priority 4: Yes Criteria Met for Priority 4: v/n. since last night. iv hydration, iv nausea meds, and flu and covid testing. neg. Disposition - Disposition OB Disposition: Physician follow up in office, Discharge to home, Written follow up instructions reviewed Discharge Date: 09/16/21 Discharge Time: 10:55 I agree with the RN Medical Screening Exam: Yes Case reviewed; plan agreed upon as documented in EMR&OBIX.: Yes Comments: Patient was neither seen nor examined by me Diagnosis: LATE VOMITING OF
== END 2021-09-16 10:55 | disposition home or self-care (01) ==
LOC: FBPOP 07:06
PROVIDERS: ATTEND Obstetrics & Gynecology
DX: O21.2 Late vomiting of pregnancy (principal); Z3A.32 32 weeks gestation of pregnancy; Z88.0 Allergy status to penicillin
CPT/HCPCS: 59025; 96361; 96365; 96375; 80053; 85025; 81001; 87086; 87636; G0463; J2765; J2405; 96366; 96367; 99214